=== PATIENT | female | born 2000 | race Caucasian/White ===

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

== ENCOUNTER 2019-01-24 22:37 | Emergency (ER) | payer OTHER ==
[2019-01-24] MEDS: HYDROCODONE/APAP (5/325) TAB PO (23:23)
[2019-01-24] MEDS: SILVER SULFADIAZINE 1% 25 GM CR TOP (23:24)
== END 2019-01-24 23:43 | disposition home or self-care (01) ==
LOC: FTE 22:37
DX: T21.21XA Burn of second degree of chest wall, initial encounter (principal); T24.212A Burn of second degree of left thigh, initial encounter; X12.XXXA Contact with other hot fluids, initial encounter; Y92.9 Unspecified place or not applicable
CPT/HCPCS: 16000; 99283-25